=== PATIENT | male | born 1955 | race Caucasian/White ===

== ENCOUNTER 2019-01-18 15:42 | Emergency (ER) | payer OTHER ==
[~2019-01-18] VITALS: Ht 172.7 cm; Wt 83.9 kg
[2019-01-18 15:49] VITALS: Ht 172.7 cm; Wt 83.9 kg
[2019-01-18 16:52] LABS: BASOPHIL % 0.5 % (0-2); PLATELET COUNT 183 x10^3mcL (130-400); RED CELL DISTRIBUTION WIDTH 14.4 % (11.5-14.5)
[2019-01-18 17:11] LABS: CALCIUM 8.6 mg/dL (8.5-10.1); CARBON DIOXIDE 25.5 mmol/L (21-32); CHLORIDE SERUM 108 mmol/L (98-107); GFR1 > 60 mL/min; GLUCOSE SERUM 128 mg/dL (74-106); POTASSIUM SERUM 3.9 mmol/L (3.5-5.1); SODIUM SERUM 142 mmol/L (136-145)
[2019-01-18 17:17] LABS: ALBUMIN 3.2 g/dL (3.4-5.0); ALKALINE PHOSPHATASE 173 U/L (46-116); ALT/SGPT 27 U/L (16-63); AST/SGOT 20 U/L (15-37); BILIRUBIN TOTAL 1.74 mg/dL (0.20-1.00); TOTAL PROTEIN, SERUM 7.3 g/dL (6.4-8.2)
[2019-01-18 19:18] VITALS: BP 137/91
== END 2019-01-18 19:18 | disposition home or self-care (01) ==
LOC: ED 15:42
PROVIDERS: Emergency Medicine
DX: J06.9 Acute upper respiratory infection, unspecified (principal); J45.909 Unspecified asthma, uncomplicated
CPT/HCPCS: 36415; J7620; Q0092

== ENCOUNTER 2019-02-23 15:42 | Emergency (ER) | payer OTHER ==
[~2019-02-23] VITALS: Ht 172.7 cm; Wt 80.7 kg
[2019-02-23 15:57] VITALS: Ht 172.7 cm; Wt 80.7 kg
[2019-02-23 20:25] VITALS: BP 145/86
== END 2019-02-23 20:33 | disposition home or self-care (01) ==
LOC: ED 15:42
DX: J45.909 Unspecified asthma, uncomplicated (principal); I10 Essential (primary) hypertension
CPT/HCPCS: J7512; J7620

== ENCOUNTER 2019-05-05 20:37 | Inpatient (IN) | payer OTHER ==
[~2019-05-05] VITALS: Ht 172.7 cm; Wt 79.4 kg
[2019-05-05 20:44] VITALS: Ht 172.7 cm; Wt 79.4 kg
[2019-05-05 21:18] LABS: BASOPHIL % 0.6 % (0-2); PLATELET COUNT 169 x10^3mcL (130-400)
[2019-05-05 21:47] LABS: CALCIUM 8.7 mg/dL (8.5-10.1); CARBON DIOXIDE 25.7 mmol/L (21-32); CHLORIDE SERUM 106 mmol/L (98-107); GFR1 > 60 mL/min; GLUCOSE SERUM 103 mg/dL (74-106); POTASSIUM SERUM 3.8 mmol/L (3.5-5.1); SODIUM SERUM 140 mmol/L (136-145)
[2019-05-05 21:51] LABS: ALKALINE PHOSPHATASE 159 U/L (46-116); ALT/SGPT 46 U/L (16-63); AST/SGOT 22 U/L (15-37); BILIRUBIN TOTAL 1.4 mg/dL (0.20-1.00); TOTAL PROTEIN, SERUM 7.1 g/dL (6.4-8.2)
[2019-05-05 21:56] LABS: ALBUMIN 3.1 g/dL (3.4-5.0)
[2019-05-05] MEDS ORDERED: METOPROLOL SUCC25 M2 PO (23:33)
[2019-05-05] MEDS ORDERED: ATORVASTATIN CA80 M1 PO (23:34)
[2019-05-05] MEDS ORDERED: PLAVIX75 M1 PO (23:34)
[2019-05-05] MEDS ORDERED: TERAZOSIN HCL2 MG PO (23:34)
[2019-05-05] MEDS ORDERED: ASPIRIN ADULT L81 M5 PO (23:35)
[2019-05-05] MEDS ORDERED: FLUOXETINE60 MG PO (23:35)
[2019-05-05] MEDS ORDERED: PEPCID AC20 M2 PO (23:35)
[2019-05-06] VITALS (7 sets, daily range): BP systolic 119–125; BP diastolic 72–93
[2019-05-06 02:31] LABS: CHLORIDE SERUM 103 mmol/L (98-107); POTASSIUM SERUM 3.5 mmol/L (3.5-5.1); SODIUM SERUM 141 mmol/L (136-145)
[2019-05-06 02:32] LABS: BILIRUBIN TOTAL 1.6 mg/dL (0.20-1.00); CALCIUM 8.3 mg/dL (8.5-10.1); CARBON DIOXIDE 30.8 mmol/L (21-32); CREATININE SERUM 1.2 mg/dL (0.7-1.3); GFR1 > 60 mL/min; GLUCOSE SERUM 96 mg/dL (74-106); TOTAL PROTEIN, SERUM 7.2 g/dL (6.4-8.2)
[2019-05-06 02:33] LABS: ALKALINE PHOSPHATASE 167 U/L (46-116); ALT/SGPT 40 U/L (16-63); AST/SGOT 20 U/L (15-37); CHOLESTEROL 100 mg/dL (<200); CHOLESTEROL/HDL RATIO 2.6; HDL CHOLESTEROL 39 mg/dL (40-60); TRIGLYCERIDES 69 mg/dL (<150)
[2019-05-06 05:19] LABS: MAGNESIUM 1.8 mg/dL (1.8-2.4); PHOSPHOROUS 3.1 mg/dL (2.5-4.9)
[2019-05-06 06:39] LABS: BASOPHIL % 0.4 % (0-2); PLATELET COUNT 165 x10^3mcL (130-400)
[2019-05-06 07:01] LABS: RED CELL DISTRIBUTION WIDTH 15.3 % (11.5-14.5)
[2019-05-06 14:35] LABS: microscopic required? NO
[2019-05-06 14:40] LABS: UA SPECIFIC GRAVITY >=1.030 (1.005-1.035); urine erythrocyte NEGATIVE (NEGATIVE)
[2019-05-06 16:10] LABS: AMPHETAMINE QUAL UR NONE DETECTED (See below)
[2019-05-07 06:35] VITALS: BP 133/81
[2019-05-07 07:36] LABS: BASOPHIL % 0.7 % (0-2); PLATELET COUNT 157 x10^3mcL (130-400)
[2019-05-07 07:51] LABS: RED CELL DISTRIBUTION WIDTH 15.4 % (11.5-14.5)
[2019-05-07 08:23] LABS: MAGNESIUM 2.4 mg/dL (1.8-2.4)
[2019-05-07 08:38] LABS: CALCIUM 8.5 mg/dL (8.5-10.1); CHLORIDE SERUM 107 mmol/L (98-107); CREATININE SERUM 1.1 mg/dL (0.7-1.3); GFR1 > 60 mL/min; GLUCOSE SERUM 96 mg/dL (74-106); POTASSIUM SERUM 3.6 mmol/L (3.5-5.1); SODIUM SERUM 144 mmol/L (136-145)
[2019-05-07 08:44] VITALS: BP 142/85
[2019-05-07 12:45] VITALS: BP 114/72
[2019-05-07] MEDS ORDERED: AUGMENTIN1 TA1 PO (14:40)
[2019-05-07 17:17] VITALS: BP 153/80
[2019-05-07 17:24] VITALS: BP 153/80
== END 2019-05-07 18:56 | disposition home or self-care (01) | DRG 243 ==
LOC: ED 20:37 → DU 05-06 00:28 → MU 05-06 00:28 → DU 05-06 01:32 → MU 05-06 16:35
PROVIDERS: Emergency Medicine; Family Medicine; ADMIT Student in an Organized Health Care Education/Training Program
DX: K21.9 Gastro-esophageal reflux disease without esophagitis (principal); E44.1 Mild protein-calorie malnutrition; I69.351 Hemiplegia and hemiparesis following cerebral infarction affecting right dominant side; E78.5 Hyperlipidemia, unspecified; I10 Essential (primary) hypertension; E80.6 Other disorders of bilirubin metabolism; F32.9 Major depressive disorder, single episode, unspecified; Z68.26 Body mass index [BMI] 26.0-26.9, adult; Z87.891 Personal history of nicotine dependence; Z79.82 Long term (current) use of aspirin; Z79.899 Other long term (current) drug therapy
CPT/HCPCS: 83880; 87804; 92526-GN; 92610-GN; 97116-GP; G0378; J1644; J2543; J7620; Q0092